=== PATIENT | female | born 1970 | race Caucasian/White ===

== ENCOUNTER 2025-01-12 08:00 | Day surgery (SDC) | payer OTHER ==
[2025-01-06 09:08] VITALS: BMI 35.4
== END 2025-01-12 13:57 | disposition home or self-care (01) ==
LOC: CSHNM 08:00
PROVIDERS: ATTEND Surgery
DX: C50.911 Malignant neoplasm of unspecified site of right female breast (principal)
CPT/HCPCS: 78195; A9541

== ENCOUNTER 2025-01-12 08:10 | Day surgery (SDC) | payer OTHER ==
[2025-01-06 09:01] VITALS: BMI 35.4
[2025-01-12] MEDS ORDERED: Rocuronium Bromide 10 MG/ML (10ML VIAL) ONE (09:17)
[2025-01-12] MEDS ORDERED: PHENYLEPHRINE-NS 100 MCG/ML 10 ML SYRINGE ONE (09:17)
[2025-01-12] MEDS ORDERED: PROPOFOL 20 ML ONE (09:18)
[2025-01-12] MEDS ORDERED: Bupivacaine HCl 0.5%/Epinephrine 1:200,000/PF 30 ml Vial ONE (10:11)
[2025-01-12] MEDS ORDERED: CEFAZOLIN 2 GM VIAL ONE (11:00)
[2025-01-12] MEDS ORDERED: Ketorolac Tromethamine 30 MG (1 mL) VIAL ONE (12:52)
[2025-01-12] MEDS ORDERED: SUGAMMADEX SODIUM 200 MG/2 ML VIAL ONE (12:58)
[2025-01-12] MEDS ORDERED: Ondansetron PF 4 MG/2 ML Vial ONE (13:31)
[2025-01-12] MEDS ORDERED: HYDROcodone/Acetaminophen 5/325 mg Tablet ONE (14:46)
== END 2025-01-12 15:20 | disposition home or self-care (01) ==
LOC: CSHSDC 08:10
PROVIDERS: ATTEND Surgery
DX: C50.811 Malignant neoplasm of overlapping sites of right female breast (principal); F41.9 Anxiety disorder, unspecified; Z79.899 Other long term (current) drug therapy
CPT/HCPCS: 76098; 88307; J1100; J1885; J2250; J2405; J2704; J3010; Q9968